=== PATIENT | female | born 1985 | race Caucasian/White ===

== ENCOUNTER 2020-05-13 02:13 | Emergency (ER) | payer BC, OTHER ==
[~2020-05-13] VITALS: Ht 165.1 cm; Wt 77.1 kg
[2020-05-13 02:16] VITALS: Ht 165.1 cm; Wt 77.1 kg
[2020-05-13 03:21] LABS: BASOPHIL % 0.4 % (0.2-1.3); PLATELET COUNT 269 x10^3mcL (179-408); RED CELL DISTRIBUTION WIDTH 13.9 % (12.3-17.7)
[2020-05-13 04:05] LABS: UA SPECIFIC GRAVITY 1.015 (1.005-1.035); microscopic required? YES; urine erythrocyte 3+ (NEGATIVE)
[2020-05-13 05:41] VITALS: BP 120/84
== END 2020-05-13 05:41 | disposition home or self-care (01) ==
LOC: ED 02:13
PROVIDERS: Emergency Medicine
DX: O20.0 Threatened abortion (principal); J45.909 Unspecified asthma, uncomplicated; Z85.41 Personal history of malignant neoplasm of cervix uteri